=== PATIENT | male | born 1965 | race Hispanic/Latino ===

== ENCOUNTER 2017-12-13 08:17 | Day surgery (SDC) | payer OTHER ==
[~2017-12-13] VITALS: Ht 175.3 cm; Wt 126.4 kg
[~2017-12-13 08:17] MED LIST: ATOR10TA PO; DESL5TAB PO; ESCI10TA PO; ESOM40CA PO; GABA300S PO; HYDR25TA PO; LEVO50TA28 PO; METF500T6 PO; SODIUM CHLORIDE 0.9% 1000ML 1,000 ML IV ONE; TAMS0.4C32 PO; TRAM1TAB PO; TRAZ-144 PO
[2017-12-13 09:13] VITALS: BP 119/68
[2017-12-13] MEDS ORDERED: PROPOFOL 10 MG/ML 20ML VIAL IV ONE (10:00)
[2017-12-13 10:22] VITALS: BP 113/63
[2017-12-30] MEDS ORDERED: GABA-531 PO ×2 (16:38)
== END 2017-12-13 11:03 | disposition home or self-care (01) ==
LOC: DAH 08:17 → ENDO 08:17
PROVIDERS: ATTEND Internal Medicine Gastroenterology
DX: Z12.11 Encounter for screening for malignant neoplasm of colon (principal); K21.9 Gastro-esophageal reflux disease without esophagitis; I10 Essential (primary) hypertension; N40.0 Benign prostatic hyperplasia without lower urinary tract symptoms; F32.9 Major depressive disorder, single episode, unspecified; E78.5 Hyperlipidemia, unspecified; E11.9 Type 2 diabetes mellitus without complications; G14 Postpolio syndrome; Z79.899 Other long term (current) drug therapy; Z68.43 Body mass index [BMI] 50.0-59.9, adult
CPT/HCPCS: 43235; G0121; 82948; A4606; J2704; J7030

== ENCOUNTER 2018-01-02 07:48 | Day surgery (SDC) | payer OTHER ==
[2017-12-30 15:45] VITALS: BP 140/73
[2017-12-30 16:06] LABS: BASOPHILS % (AUTO) 0.7 % (0.0-5.0); EOSINOPHILS % (AUTO) 3.1 % (0.0-8.0); LYMPHOCYTES % (AUTO) 25.4 % (21.0-51.0); MEAN CORPUSCULAR HEMOGLOBIN 27.6 pg (27.0-33.0); MEAN CORPUSCULAR HGB CONC 33.5 g/dL (32.0-36.0); MEAN CORPUSCULAR VOLUME 82.6 fL (79-99); MONOCYTES % (AUTO) 7.4 % (3.0-13.0); NEUTROPHILS % (AUTO) 63.4 % (40.0-77.0); PLATELET COUNT (AUTO) 322 K/uL (130-400); RED BLOOD CELL COUNT(AUTO) 5.44 MIL/uL (4.50-6.20); RED CELL DISTRIBUTION WIDTH 14.2 % (11.0-15.5); WHITE BLOOD COUNT (AUTO) 13.2 K/uL (4.8-10.8)
[2017-12-30 16:11] LABS: APPEARANCE,URINE CLEAR (CLEAR); BILIRUBIN,URINE NEGATIVE (NEGATIVE); COLOR,URINE YELLOW (YELLOW); GLUCOSE, URINE (UA) NEGATIVE (NEGATIVE); KETONES,URINE NEGATIVE (NEGATIVE); LEUKOCYTE ESTERASE ,URINE NEGATIVE (NEGATIVE); NITRATE,URINE NEGATIVE (NEGATIVE); OCCULT BLOOD,URINE NEGATIVE (NEGATIVE); PH,URINE 5.5 (5.0-8.0); PROTEIN,URINE NEGATIVE (NEGATIVE); UROBILINOGEN,URINE 0.2 mg/dL (0.2-1.0)
[2017-12-30 16:16] LABS: CREATININE 0.9 mg/dL (0.5-1.5); POTASSIUM 3.4 mmol/L (3.5-5.1)
[2017-12-30 16:20] LABS: INR 0.95 (0.85-1.15); PARTIAL THROMBOPLASTIN TIME 26.4 SEC (26.3-35.5)
[2018-01-02] VITALS (18 sets, daily range): BP systolic 120–145; BP diastolic 59–75
[~2018-01-02] VITALS: Ht 175.3 cm; Wt 128.4 kg
[~2018-01-02 07:48] MED LIST changes: +GABA-531 PO; -SODIUM CHLORIDE 0.9% 1000ML 1,000 ML IV ONE
[2018-01-02] MEDS: CEFTRIAXONE SODIUM 1 GM IVP SCH ×2 (08:30→12:30)
[2018-01-02] MEDS ORDERED: SODIUM CHLORIDE 0.9% 1000ML 1,000 ML IV ONE (08:34)
[2018-01-02] MEDS: GENTAMICIN 80 MG/NS 100 ML PB 100 ML IV SCH ×2 (08:56→12:30)
[2018-01-02] MEDS ORDERED: MIDAZOLAM HCL 1 MG/ML 2ML VIAL ONE (12:09)
[2018-01-02] MEDS ORDERED: NEOSTIGMINE 5MG/5ML SYR IV ONE (12:09)
[2018-01-02] MEDS ORDERED: DEXAMETHASONE SOD PHOSPHATE 10MG/ML 1ML VIAL ONE (12:09)
[2018-01-02] MEDS ORDERED: SUCCINYLCHOLINE 200MG/10ML SYR ONE (12:09)
[2018-01-02] MEDS ORDERED: LIDOCAINE PF 2% 5ML ABBOJECT ONE (12:09)
[2018-01-02] MEDS ORDERED: GLYCOPYRROLATE 0.2 MG/ML 5 ML VIAL ONE (12:09)
[2018-01-02] MEDS ORDERED: ONDANSETRON HCL 4 MG/2 ML VIAL ONE (12:09)
[2018-01-02] MEDS ORDERED: FENTANYL CITRATE PF 50 MCG/1 ML 2ML VIAL ONE ×2 (12:10→12:46)
[2018-01-02] MEDS ORDERED: PROPOFOL 10 MG/ML 20ML VIAL IV ONE (12:10)
== END 2018-01-02 15:30 | disposition home or self-care (01) ==
LOC: DAH 07:48
PROVIDERS: ATTEND Urology
DX: N40.1 Benign prostatic hyperplasia with lower urinary tract symptoms (principal); N13.8 Other obstructive and reflux uropathy; R35.0 Frequency of micturition; N52.9 Male erectile dysfunction, unspecified; I10 Essential (primary) hypertension; F32.9 Major depressive disorder, single episode, unspecified; E66.9 Obesity, unspecified; Z98.890 Other specified postprocedural states; Z88.8 Allergy status to other drugs, medicaments and biological substances; E11.9 Type 2 diabetes mellitus without complications; E07.9 Disorder of thyroid, unspecified; A80.9 Acute poliomyelitis, unspecified; Z79.01 Long term (current) use of anticoagulants; E78.4 Other hyperlipidemia
CPT/HCPCS: 36415; 52648; 80048; 81003; 82948 ×2; 85025; 85610; 85730; 87088; 93005; A4218; A4354; A4358; A4600; C1758; J0330; J0696; J1100; J1580 ×2; J2001; J2250; J2405; J2704; J2710; J3010 ×2; J3490; J7030 ×2

== ENCOUNTER → 2018-09-08 | Outpatient (CLI) | payer OTHER ==
[~2018-09-08] MED LIST changes: -ESCI10TA PO; -GABA300S PO; +METF-444 PO; -METF500T6 PO; -TRAM1TAB PO; -TRAZ-144 PO
== END | disposition home or self-care (01) ==
LOC: RAH 09:12
PROVIDERS: ATTEND Internal Medicine Gastroenterology
DX: R10.13 Epigastric pain (principal)
CPT/HCPCS: 76700

== ENCOUNTER → 2018-12-22 | Outpatient (CLI) | payer OTHER | END | disposition home or self-care (01) | LOC: SHCH 09:24 | PROVIDERS: ATTEND Internal Medicine Cardiovascular Disease | DX: I10 Essential (primary) hypertension (principal); E11.9 Type 2 diabetes mellitus without complications; E78.5 Hyperlipidemia, unspecified | CPT/HCPCS: 93306 ==

== ENCOUNTER → 2018-12-25 | Outpatient (CLI) | payer OTHER ==
[~2018-12-25] VITALS: Ht 175.3 cm; Wt 119.3 kg
[~2018-12-25] MED LIST changes: +REGADENOSON 0.4 MG/5 ML PF SYG IVP SCH
== END | disposition home or self-care (01) ==
LOC: SHCH 09:14
PROVIDERS: ATTEND Internal Medicine Cardiovascular Disease
DX: Z01.810 Encounter for preprocedural cardiovascular examination (principal); E78.5 Hyperlipidemia, unspecified
CPT/HCPCS: 78452; 93017; 96374; A9500 ×2; J2785

== ENCOUNTER → 2021-10-02 | Outpatient (CLI) | payer OTHER ==
[~2021-10-02] MED LIST changes: -REGADENOSON 0.4 MG/5 ML PF SYG IVP SCH
== END | disposition home or self-care (01) ==
LOC: RAH 11:24
PROVIDERS: ATTEND Internal Medicine Cardiovascular Disease
DX: Z13.6 Encounter for screening for cardiovascular disorders (principal)
CPT/HCPCS: 75571